=== PATIENT | male | born 1965 | race Caucasian/White ===

== ENCOUNTER 2017-11-10 05:19 | Emergency (ER) | payer OTHER ==
--- NOTE | 2017-11-10 05:44 | PDOC ---
Attending Attestation - Resident Resident Name: JenniferCesar - ED Attending Attestation I have performed the following: I have examined & evaluated the patient, The case was reviewed & discussed with the resident, I agree w/resident's findings & plan - HPI HPI: 11/10/17 06:26 Pt comes with nosebleed; he has tissues stuffed inside his nose. - Physicial Exam PE: 11/10/17 06:27 BP elevated. He will be treated with lisinopril Pt's - Medical Decision Making 11/10/17 06:27 CXR normal; 11/10/17 06:27 Labs pending 11/10/17 07:31 Bleeding stopped; vitals normal; CBC chem INR normal. Pt is ready to go home. Will follow with DR. NAVARRO.
[2017-11-10] MEDS ORDERED: LISINOPRIL 20 MG TABLET (FP) PO ONE (05:45)
[2017-11-10] MEDS ORDERED: LISINOPRIL 20 MG TABLET (FP) ONE (06:00)
[2017-11-10 06:01] VITALS: BMI 28.1
--- NOTE | 2017-11-10 06:23 | PDOC ---
History of Present Illness - General History Source: Patient Exam Limitations: No Limitations - History of Present Illness Initial Comments: 11/10/17 06:15 The patient is a 52M with a PMH of HTN and frequent epistaxis who presents to the ER with epistaxis. The patient states that around 0430 this morning, he developed a headache and then felt a small nose bleed which continued and has not stopped. The patient denies any symptoms of CP, SOB, fever, chills, nausea, vomiting, numbness, tingling, weakness. The patient states that this happened 2 weeks ago when he was in [place] and he required cauterization in the OR. He states that he has had previous rhino-rockets and they have not helped. <Cesar Rodriguez - Last Filed: 11/10/17 06:58> <Renetta Schultz - Last Filed: 11/10/17 07:36> - General Chief Complaint: Nasal Bleeding Stated Complaint: NOSE BLEED Time Seen by Provider: 11/10/17 05:44 Past History - Past Medical History Anemia: No Asthma: Yes Cancer: No Cardiac Disorders: No CVA: No COPD: No CHF: No Dementia: No Diabetes: No GI Disorders: No Disorders: No HTN: Yes Hypercholesterolemia: No Liver Disease: No Seizures: No Thyroid Disease: No - Surgical History Abdominal Surgery: No Appendectomy: No Cardiac Surgery: No Cholecystectomy: No Lung Surgery: No Neurologic Surgery: No Orthopedic Surgery: No - Immunization History Immunization Up to Date: Yes - Suicide/Smoking/Psychosocial Hx Smoking Status: Yes Smoking History: Never smoked Have you smoked in the past 12 months: No Number of Cigarettes Smoked Daily: 0 If you are a former smoker, when did you quit?: Approx. 24 years ago. Cigars Per Day: 0 Information on smoking cessation initiated: No Hx Alcohol Use: No Drug/Substance Use Hx: No Substance Use Type: None Hx Substance Use Treatment: Yes <Cesar Rodriguez - Last Filed: 11/10/17 06:58> <Renetta Schultz - Last Filed: 11/10/17 07:36> - Past Medical History Allergies/Adverse Reactions: Allergies Allergy/AdvReac Type Severity Reaction Status Date / Time No Known Allergies Allergy Verified 04/09/15 12:37 Home Medications: Ambulatory Orders Lisinopril 10 mg PO DAILY #30 tablet 09/13/17 Review of Systems - Review of Systems Able to Perform ROS?: Yes Comments:: 11/10/17 06:24 GENERAL/CONSTITUTIONAL: No fever or chills. No weakness. HEAD, EYES, EARS, NOSE AND THROAT: Positive for epistaxis. No change in vision. No ear pain or discharge. No sore throat. GASTROINTESTINAL: No nausea, vomiting, diarrhea, constipation, or abdominal pain. GENITOURINARY: No dysuria, frequency, hematuria, or change in urination. CARDIOVASCULAR: No chest pain, palpitations, or lightheadedness. RESPIRATORY: No cough, wheezing, shortness of breath, or hemoptysis. MUSCULOSKELETAL: No joint or muscle swelling or pain. No neck or back pain. SKIN: No rash or lesions. NEUROLOGIC: Positive for headache. No numbness, tingling, weakness, loss of consciousness, or change in strength/sensation. ENDOCRINE: No increased thirst. No abnormal weight change. HEMATOLOGIC/LYMPHATIC: No anemia, easy bleeding, or history of blood clots. ALLERGIC/IMMUNOLOGIC: No hives or skin allergy. Is the patient limited Vietnamese proficient: No <Cesar Rodriguez - Last Filed: 11/10/17 06:58> *Physical Exam - Vital Signs Last Vital Signs Temp Pulse Resp BP Pulse Ox 97.2 F L 101 H 18 134/92 95 11/10/17 05:46 11/10/17 05:46 11/10/17 05:46 11/10/17 05:46 11/10/17 05:46 - Physical Exam Comments: 11/10/17 06:24 GENERAL: Well developed, well nourished. Awake and alert. No acute distress. HEENT: Nasal packing in L nostril. Red blood in posterior oropharnynx. Normocephalic, atraumatic. Hearing grossly normal. Moist mucous membranes. PERRLA, EOMI. No conjunctival pallor. Sclera are non-icteric. NECK: Supple. Full ROM. No JVD. CARDIOVASCULAR: Regular rate and rhythm. No murmurs, rubs, or gallops. PULMONARY: No evidence of respiratory distress. Lungs clear to auscultation bilaterally. No wheezing, rales or rhonchi. ABDOMINAL: Soft. Non-tender. Non-distended. No rebound or guarding. MUSCULOSKELETAL: Normal range of motion at all joints. No bony deformities or tenderness. EXTREMITIES: No cyanosis. No clubbing. No edema. No calf tenderness. SKIN: Warm and dry. Normal capillary refill. No rashes. No jaundice. NEUROLOGICAL: Alert, awake, appropriate. Cranial nerves 2-12 intact. Normal speech. Gait is normal without ataxia. PSYCHIATRIC: Cooperative. Good eye contact. Appropriate mood and affect. <Cesar Rodriguez - Last Filed: 11/10/17 06:58> - Vital Signs Last Vital Signs Temp Pulse Resp BP Pulse Ox 97.2 F L 101 H 18 134/92 95 11/10/17 05:46 11/10/17 05:46 11/10/17 05:46 11/10/17 05:46 11/10/17 05:46 <Renetta Schultz - Last Filed: 11/10/17 07:36> Heart Score/ECG Review #1 ECG reviewed & interpreted by me at: 06:27 General ECG Interpretation: Sinus Rhythm, Normal Rate, Normal Intervals, No acute ischemic changes Compared to previous ECG there are: No significant change <Cesar Rodriguez - Last Filed: 11/10/17 06:58> ED Treatment Course - LABORATORY CBC & Chemistry Diagram: 11/10/17 06:10 11/10/17 06:10 - RADIOLOGY Radiology Studies Ordered: Category Date Time Status CHEST X-RAY PORTABLE* [RAD] Stat Radiology 11/10/17 05:46 Ordered - Medications Given in the ED: ED Medications Discontinued Medications Generic Name Dose Route Start Last Admin Trade Name Freq PRN Reason Stop Dose Admin Lisinopril 20 mg 11/10/17 05:45 11/10/17 06:03 Prinivil PO 11/10/17 05:46 20 mg ONCE ONE Administration <Cesar Rodriguez - Last Filed: 11/10/17 06:58> - LABORATORY CBC & Chemistry Diagram: 11/10/17 06:10 11/10/17 06:10 - ADDITIONAL ORDERS Additional order review: Laboratory Results 11/10/17 11/10/17 06:10 06:10 PT with INR 10.80 INR 0.96 PTT (Actin FS) 34.1 Sodium 140 Potassium 4.2 Chloride 107 Carbon Dioxide 23 Anion Gap 10 BUN 13 Creatinine 0.7 D Creat Clearance w eGFR > 60 Random Glucose 92 Calcium 8.4 L Total Bilirubin 0.3 D AST 0 L D ALT 38 Alkaline Phosphatase 79 Creatine Kinase 60 Troponin I < 0.02 Total Protein 7.4 Albumin 3.5 11/10/17 06:10 RBC 4.60 MCV 96.0 MCHC 34.4 RDW 12.5 MPV 8.9 D Neutrophils % 67.9 D Lymphocytes % 15.9 D Monocytes % 13.2 H Eosinophils % 2.3 Basophils % 0.7 - Medications Given in the ED: ED Medications Discontinued Medications Generic Name Dose Route Start Last Admin Trade Name Jessie PRN Reason Stop Dose Admin Lisinopril 20 mg 11/10/17 05:45 11/10/17 06:03 Prinivil PO 11/10/17 05:46 20 mg ONCE ONE Administration <Renetta Schultz - Last Filed: 11/10/17 07:36> Medical Decision Making - Medical Decision Making 11/10/17 06:27 The patient is a 52M with a PMH of HTN who presents to the ED with epistaxis. The epistaxis is likely 2/2 to his HTN. Will give him 20 of lisinopril and assess his L nostril. With his history of requiring the OR, I have drawn labs in case he will require this. He also has maxwell blood (not active bleed) in his posterior oropharnyx. Pending labs. Will monitor closely and instruct the patient to hold pressure. 11/10/17 06:58 Hgb 15.2. Bleeding not seen in either nostril with no blood in oropharnyx. He blew his nose and clots came out. No active bleeding seen. Pt signed out to Dr. Sánchez, day team. Pending rest of labs and disposition. F/u with Dr. Carranza, ENT. <Cesar Rodriguez - Last Filed: 11/10/17 06:58> *DC/Admit/Observation/Transfer <Cesar Rodriguez - Last Filed: 11/10/17 06:58> - Discharge Dispostion Admit: No <Renetta Schultz - Last Filed: 11/10/17 07:36> Diagnosis at time of Disposition: Epistaxis - Discharge Dispostion Disposition: HOME Condition at time of disposition: Improved - Referrals Referrals: Harvey Koehler, RN RECRUITMENT [Primary Care Provider] - Montrell Suarez MD [Staff Physician] - - Patient Instructions - Post Discharge Activity Forms/Work/School Notes: Back to Work
[2017-11-10 06:26] LABS: BASO % 0.7 % (0-2.0); EOS % 2.3 % (0-4.5); HEMATOCRIT 44.2 % (35.4-49); HEMOGLOBIN 15.2 GM/dL (11.7-16.9); LYMPH % 15.9 % (8-40); MCHC 34.4 g/dl (32.0-35.9); MEAN PLT VOLUME 8.9 fl (7.5-11.1); MONO % 13.2 % (3.8-10.2); NEUT % 67.9 % (42.8-82.8); PLATELET COUNT 265 K/MM3 (134-434); RDW 12.5 % (11.9-15.9); WHITE BLOOD COUNT 6.4 K/mm3 (4.0-10.0)
[2017-11-10 06:52] LABS: INR 0.96 (0.82-1.09); PROTHROMBIN TIME (PATIENT) 10.8 SEC (9.98-11.88)
[2017-11-10 06:53] LABS: ALBUMIN 3.5 g/dl (3.4-5.0); ANION GAP 10 (8-16); BILIRUBIN,TOTAL 0.3 mg/dL (0.2-1.0); BLOOD UREA NITROGEN 13 mg/dL (7-18); CALCIUM 8.4 mg/dL (8.5-10.1); CHLORIDE 107 mmol/L (98-107); CO2 23 mmol/L (21-32); CREATININE 0.7 mg/dL (0.7-1.3); GLUCOSE,RANDOM 92 mg/dL (74-106); SGPT/ALT 38 U/L (12-78); SODIUM 140 mmol/L (136-145); TOT PROT 7.4 g/dl (6.4-8.2)
[2017-11-10 06:55] LABS: ACTIVATED PTT 34.1 SECONDS (26.9-34.4); ALK PHOS 79 U/L (45-117)
[2017-11-10 07:06] LABS: POTASSIUM 4.2 mmol/L (3.5-5.1); SGOT/AST 0 U/L (15-37)
[2017-11-10 07:46] VITALS: BP 113/85; PULSE 89; TEMP 97.5
--- NOTE | 2017-11-10 10:26 | EKG ---
Test Reason : Blood Pressure : / mmHG Vent. Rate : 087 BPM Atrial Rate : 087 BPM P-R Int : 158 ms QRS Dur : 106 ms QT Int : 340 ms P-R-T Axes : 043 017 017 degrees QTc Int : 409 ms NORMAL SINUS RHYTHM NONSPECIFIC ST AND T WAVE ABNORMALITY BORDERLINE ECG WHEN COMPARED WITH ECG OF 15-SEP-2014 01:33, NO SIGNIFICANT CHANGE WAS FOUND Confirmed by JAYLEN QUINTANILLA MD ([id number]) on 11/10/2017 10:26:22 AM Referred By: Confirmed By:JAYLEN QUINTANILLA MD
== END 2017-11-10 07:46 | disposition home or self-care (01) ==
LOC: JER 05:19
DX: I10 Essential (primary) hypertension (principal); R04.0 Epistaxis
CPT/HCPCS: 36415; 71045-TC; 80053; 82550; 84484; 85025; 85610; 85730; 86850; 86900; 86901; 93005; 93010; 99281-25

== ENCOUNTER 2017-11-14 19:59 | Emergency (ER) | payer OTHER ==
[2017-11-14 21:23] VITALS: TEMP 98.5; BMI 28.1
--- NOTE | 2017-11-14 21:23 | PDOC ---
Rapid Medical Evaluation Time Seen by Provider: 11/14/17 21:17 Medical Evaluation: Allergies Allergy/AdvReac Type Severity Reaction Status Date / Time No Known Allergies Allergy Verified 04/09/15 12:37 11/14/17 21:17 I have performed a brief in-person evaluation of this patient. The patient presents with a chief complaint of: h/o HTN (10/10 pressure and pulsating throughout head) 10/17/2017 cauterized left nare in [place] Was seen on Friday in the ER for left epistaxis Saw ENT today/Dr. Suarez, says it's fine Epistaxis x6 times today Controlled with Direct pressure. Pt states nose bleed on every moment Pt states Dr. Suarez says to have him call if it recurs. Pertinent physical exam findings:left sided epistaxis I have ordered the following: cbc/cmp The patient will proceed to the ED for further evaluation
[2017-11-14 21:42] LABS: BASO % 0.6 % (0-2.0); EOS % 0.4 % (0-4.5); HEMATOCRIT 40.7 % (35.4-49); HEMOGLOBIN 13.8 GM/dL (11.7-16.9); LYMPH % 22.5 % (8-40); MCH 32.4 pg (25.7-33.7); MEAN CELL VOLUME 95.2 fl (80-96); MEAN PLT VOLUME 9.2 fl (7.5-11.1); MONO % 15.2 % (3.8-10.2); NEUT % 61.3 % (42.8-82.8); PLATELET COUNT 224 K/MM3 (134-434); RBC 4.28 M/mm3 (4.00-5.60); RDW 12.3 % (11.9-15.9); WHITE BLOOD COUNT 5.2 K/mm3 (4.0-10.0)
[2017-11-14 22:22] LABS: ALBUMIN 3.7 g/dl (3.4-5.0); ANION GAP 6 (8-16); BLOOD UREA NITROGEN 13 mg/dL (7-18); CALCIUM 8.3 mg/dL (8.5-10.1); CHLORIDE 101 mmol/L (98-107); CO2 28 mmol/L (21-32); CREATININE 0.9 mg/dL (0.7-1.3); GLUCOSE,RANDOM 113 mg/dL (74-106); POTASSIUM 3.6 mmol/L (3.5-5.1); SGOT/AST 26 U/L (15-37); SGPT/ALT 42 U/L (12-78); SODIUM 135 mmol/L (136-145)
[2017-11-14 22:23] LABS: ALK PHOS 82 U/L (45-117); BILIRUBIN,TOTAL 0.5 mg/dL (0.2-1.0); TOT PROT 7.5 g/dl (6.4-8.2)
[2017-11-14] MEDS ORDERED: OXYMETAZOLINE 0.05% NASAL SOLUTION 15 ML BOTTLE NS ONE (22:25)
--- NOTE | 2017-11-14 22:46 | PDOC ---
History of Present Illness - General Chief Complaint: Nasal Bleeding Stated Complaint: HEADACHE Time Seen by Provider: 11/14/17 21:17 History Source: Patient Exam Limitations: No Limitations - History of Present Illness Initial Comments: This is a 52 YOM with h/o HIV (on HAART) and HTN (on lisinopril) who p/w daily nose bleeds for the past month, acutely worse today with 6 episodes of epistaxis. He was seen for this a month ago in [place] and had a nasal cautery procedure at that time, but was told that there was a vessel too far within the left nostril that they were unable to cauterize. He followed up with Dr. Suarez this morning for the continued nose bleeds, and Dr. Suarez told him that there was no intervention indicated at that time, but that he should call if the nose bleeds worsen. The patient has additionally had worsening frontal and top headache for the past four days, facial flushing, and sinus pressure in all of his sinuses. He denies sore throat, cough, chest pain, SOB, vision changes, numbness, tingling, focal weakness, abdominal pain, nausea, vomiting, fever, chills, or other symptoms. Past History - Past Medical History Allergies/Adverse Reactions: Allergies Allergy/AdvReac Type Severity Reaction Status Date / Time No Known Allergies Allergy Verified 11/14/17 21:23 Home Medications: Ambulatory Orders Lisinopril 10 mg PO DAILY #30 tablet 09/13/17 Blood Pressure Test Kit [Blood Pressure Kit] 1 each MC DAILY #30 kit 11/13/17 Emtricita/Rilpivirine/Tenof Df [Complera Tablet] 1 each PO DAILY #30 tablet Guaifenesin [Mucinex -] 600 mg PO DAILY #20 tablet.er 11/13/17 Amoxicillin/Potassium Clav [Augmentin 875-125 Tablet] 1 each PO BID #5 tablet Anemia: No Asthma: Yes Cancer: No Cardiac Disorders: No CVA: No COPD: No CHF: No Dementia: No Diabetes: No GI Disorders: No Disorders: No HTN: Yes Hypercholesterolemia: No Liver Disease: No Seizures: No Thyroid Disease: No - Surgical History Abdominal Surgery: No Appendectomy: No Cardiac Surgery: No Cholecystectomy: No Lung Surgery: No Neurologic Surgery: No Orthopedic Surgery: No - Immunization History Immunization Up to Date: Yes - Suicide/Smoking/Psychosocial Hx Smoking Status: Yes Smoking History: Never smoked Have you smoked in the past 12 months: No Number of Cigarettes Smoked Daily: 0 If you are a former smoker, when did you quit?: Approx. 24 years ago. Cigars Per Day: 0 Information on smoking cessation initiated: No Hx Alcohol Use: No Drug/Substance Use Hx: No Substance Use Type: None Hx Substance Use Treatment: Yes Review of Systems - Review of Systems Able to Perform ROS?: Yes Constitutional: No: Chills, Fever, Unexplained wgt Loss HEENTM: Yes: Nose Bleeding, Other (sinus pain). No: Eye Pain, Ear Pain, Ear Discharge, Nose Congestion, Hearing Loss, Throat Pain, Throat Swelling Respiratory: No: Cough, Shortness of Breath Cardiac (ROS): No: Chest Pain, Palpitations ABD/GI: No: Constipated, Diarrhea, Nausea, Vomiting : No: Burning, Dysuria Musculoskeletal: No: Back Pain, Neck Pain Integumentary: No: Bruising, Rash Neurological: Yes: Headache. No: Numbness, Tingling, Weakness, Dizziness Endocrine: No: Unexplained Weight Gain, Unexplained Weight Loss *Physical Exam - Vital Signs Last Vital Signs Temp Pulse Resp BP Pulse Ox 98.5 F 95 H 18 147/98 97 11/14/17 21:17 11/14/17 21:17 11/14/17 21:17 11/14/17 21:17 11/14/17 21:17 - Physical Exam General Appearance: Yes: Nourished, Appropriately Dressed, Other (pleasant adult male, answering questions appropriately, no active bleeding but has tissue in hand with small amount of blood). No: Apparent Distress HEENT: positive: EOMI, ELVIS, Normal Voice, Hearing Grossly Normal, Other (sinus tenderness to bilateral frontal, ethmoid, and maxillary sinuses worse in the ethmoid sinuses). negative: Scleral Icterus (R), Scleral Icterus (L), Nasal Congestion Neck: positive: Trachea midline, Supple. negative: Tender, Rigid Respiratory/Chest: positive: Lungs Clear, Normal Breath Sounds. negative: Respiratory Distress, Crackles, Rhonchi, Stridor, Wheezing Cardiovascular: positive: Regular Rhythm, Regular Rate. negative: Edema, JVD, Murmur Gastrointestinal/Abdominal: positive: Normal Bowel Sounds, Soft. negative: Tender, Organomegaly, Pulsatile Mass, Guarding Musculoskeletal: positive: Normal Inspection. negative: Decreased Range of Motion, Vertebral Tenderness Extremity: positive: Normal Capillary Refill, Normal Inspection, Normal Range of Motion. negative: Tender, Cyanosis Integumentary: positive: Normal Color, Dry, Warm. negative: Erythema, Rash, Bruising Neurologic: positive: health safety coordinator II-XII NML intact, Fully Oriented, Alert, Normal Mood/ Affect, Normal Response, Motor Strength 5/5, Sensory Deficit, Finger to Nose ( normal). negative: Confused, Disoriented ED Treatment Course - LABORATORY CBC & Chemistry Diagram: 11/14/17 21:20 11/14/17 21:20 - ADDITIONAL ORDERS Additional order review: Laboratory Results 11/14/17 21:20 Sodium 135 L Potassium 3.6 Chloride 101 Carbon Dioxide 28 Anion Gap 6 L BUN 13 D Creatinine 0.9 D Creat Clearance w eGFR > 60 Random Glucose 113 H D Calcium 8.3 L Total Bilirubin 0.5 D AST 26 ALT 42 Alkaline Phosphatase 82 Total Protein 7.5 Albumin 3.7 11/14/17 21:20 RBC 4.28 MCV 95.2 MCHC 34.0 RDW 12.3 MPV 9.2 Neutrophils % 61.3 Lymphocytes % 22.5 D Monocytes % 15.2 H Eosinophils % 0.4 D Basophils % 0.6 Medical Decision Making - Medical Decision Making 52M h/o HIV on HAART CD4 590 yesterday, HTN on lisinopril, p/w nosebleeds, headache, sinus pressure/ttp. On exam VS wnl, tissue with small blood in hand but no active bleeding, neuro normal, sinus ttp. DDX IBNLT anterior/posterior epistaxis possibly related to sinusitis, unlikely mucor or other more serious process. Ordered is CBCD, CMP, head CT. 11/14/17 23:[address] unremarkable for intracranial path, but sinus thickening noted. Patient in moderate pain and 975 Tylenol PO ordered. Augmentin 875 mg ordered for sinusitis. 11/14/17 23:43 Patient's pain improved slightly but incomplete improvement. *DC/Admit/Observation/Transfer Diagnosis at time of Disposition: Frequent nosebleeds, Headache, Sinusitis, HIV (human immunodeficiency virus infection) - Discharge Dispostion Disposition: HOME Condition at time of disposition: Stable Admit: No - Prescriptions Prescriptions: Amoxicillin/Potassium Clav [Augmentin 875-125 Tablet] 1 each PO BID #5 tablet - Referrals - Patient Instructions Printed Discharge Instructions: DI for Sinusitis Additional Instructions: You were seen in the ER for nose bleeds, headache, and sinus pain. Your nose bleed resolved on its own while you were here in the ER. We did lab work and a head CT which had findings which could suggest sinusitis. Because you have sinus tenderness and a headache, we believe you do have sinusitis. We gave you a dose of antibiotic here in the ED. We also gave you Tylenol. You do not have anemia (low blood levels) and your blood work is normal. Please sisal picker your prescription for the antibiotic at your pharmacy, and take it as prescribed. Finish the prescription whether or not you feel better. Please also take Tylenol for your headache. Follow up with your regular provider tomorrow in their clinic. Also follow up with Dr. Suarez - call his office on Friday. If you still have a headache on Friday, also call the neurologist and make an appointment (tell them you were seen in the ER). You have been having many nose bleeds and we do expect you to have more nose bleeds after you go home. Nose bleeds themselves are not an emergency if your blood levels are normal (as yours are). Please return to the ER for new symptoms like worsening of your headache, passing out, inability to see, weakness of one side of your body, numbness, or tingling. - Post Discharge Activity
[2017-11-14] MEDS ORDERED: ACETAMINOPHEN 500 MG TABLET (FP) PO ONE (22:50)
[2017-11-14] MEDS ORDERED: AMOX TR/POT CLAV 875MG/125MG TABLETS (FP) PO ONE (22:51)
[2017-11-14] MEDS ORDERED: ACETAMINOPHEN 325 MG TABLET (FP) ONE (22:53)
[2017-11-14] MEDS ORDERED: AMOX TR/POT CLAV 875MG/125MG TABLETS (FP) ONE (22:58)
[2017-11-14 23:05] VITALS: BP 144/92; PULSE 97
== END 2017-11-15 00:55 | disposition home or self-care (01) ==
LOC: JER 19:59
DX: R04.0 Epistaxis (principal); I10 Essential (primary) hypertension; J32.8 Other chronic sinusitis; Z21 Asymptomatic human immunodeficiency virus [HIV] infection status
CPT/HCPCS: 36415; 70450-TC; 80053; 85025; 99281-25

== ENCOUNTER 2020-12-02 14:48 | Emergency (ER) | payer OTHER ==
[2020-12-02 15:01] VITALS: BP 151/108; PULSE 86; TEMP 99.2; BMI 28.1
[2020-12-02] MEDS ORDERED: ACETAMINOPHEN 1000 MG/100 ML VIAL (NON FORMULARY) IVPB ONE (16:16)
[2020-12-02] MEDS ORDERED: ACETAMINOPHEN INJECTION 100 ML IVPB ONE (16:32)
[2020-12-02 17:43] LABS: BASO % 0.7 % (0-2.0); EOS % 0.7 % (0-4.5); HEMATOCRIT 43.9 % (35.4-49); LYMPH % 26.2 % (8-40); MCH 33.7 pg (25.7-33.7); MCHC 34.2 g/dl (32.0-35.9); MEAN CELL VOLUME 98.4 fl (80-96); MEAN PLT VOLUME 9.5 fl (7.5-11.1); MONO % 8.3 % (3.8-10.2); NEUT % 64.1 % (42.8-82.8); PLATELET COUNT 300 K/MM3 (134-434); RBC 4.46 M/mm3 (4.00-5.60); RDW 12.9 % (11.9-15.9); WHITE BLOOD COUNT 7.4 K/mm3 (4.0-10.0)
[2020-12-02 17:46] LABS: ALBUMIN 4.3 g/dl (3.4-5.0); CALCIUM 9.2 mg/dL (8.5-10.1)
[2020-12-02 17:47] LABS: BLOOD UREA NITROGEN 11.8 mg/dL (7-18)
[2020-12-02 17:50] LABS: CREATININE 0.8 mg/dL (0.55-1.3)
[2020-12-02 17:51] LABS: BILIRUBIN,TOTAL 0.9 mg/dL (0.2-1); TOT PROT 8.1 g/dl (6.4-8.2)
[2020-12-02] MEDS ORDERED: CLINDAMYCIN 600MG PREMIX IVPB 600 MG/50 ML BAG IVPB ONE ×2 (18:39→18:59)
== END 2020-12-02 20:17 | disposition home or self-care (01) ==
LOC: JER 14:48
PROC: 3E0333Z Introduction of Anti-inflammatory into Peripheral Vein, Percutaneous Approach (ICD-10-PCS; principal; 2020-12-02)
PROC: 3E03329 Introduction of Other Anti-infective into Peripheral Vein, Percutaneous Approach (ICD-10-PCS; 2020-12-02)
DX: L03.116 Cellulitis of left lower limb (principal)
CPT/HCPCS: 36415; 73590-TC-LT-FY; 73610-TC-LT-FY; 73630-TC-LT; 80053; 85025; 99285-25; J0131

== ENCOUNTER 2024-11-16 08:52 | Emergency (ER) | payer OTHER ==
[2024-11-16 08:59] VITALS: BP 146/98; PULSE 104; RESP 18; TEMP 100.4; BMI 31.3
[2024-11-16] MEDS ORDERED: ACETAMINOPHEN 500 MG TABLET (FP) ONE (09:59)
[2024-11-16] MEDS: ACETAMINOPHEN 500 MG TABLET (FP) PO ONE (10:04)
== END 2024-11-16 10:45 | disposition home or self-care (01) ==
LOC: JERFT 08:52
DX: J10.1 Influenza due to other identified influenza virus with other respiratory manifestations (principal); R05.9 Cough, unspecified; R09.81 Nasal congestion; M79.10 Myalgia, unspecified site; R50.9 Fever, unspecified; R11.2 Nausea with vomiting, unspecified; Z20.822 Contact with and (suspected) exposure to COVID-19
CPT/HCPCS: 0241U-QW; 71046-TC-FY; 99284-25